=== PATIENT | male | born 1965 | race Caucasian/White ===

== ENCOUNTER 2021-09-19 13:45 | Emergency (ER) | payer MEDICARE ==
[2021-09-19] MEDS ORDERED: CYCLOBENZAPRINE10 MG PO (15:19)
[2021-09-19] MEDS ORDERED: ENDOCET 5-3251 EACH PO (15:19)
== END 2021-09-19 16:21 | disposition home or self-care (01) ==
LOC: ER1 13:45
DX: M47.22 Other spondylosis with radiculopathy, cervical region (principal); X58.XXXA Exposure to other specified factors, initial encounter
CPT/HCPCS: 72125; 73030; 99284